=== PATIENT | female | born 1955 | race Caucasian/White ===

== ENCOUNTER → 2023-10-04 10:35 | Outpatient (REF) | payer MEDICARE, BC, SELFPAY ==
[2023-10-04 12:16] LABS: % Basophils 0.8 % (0-2); % Eosinophils 5.9 % (0-6); % Immature Granulocytes 0.1 % (0-0.5); % Lymphocytes 39.4 % (20.5-51.1); % Monocytes 6.4 % (1.7-9.3); % Neutrophils 47.4 % (42.2-75.2); Absolute Basophils 0.1 10^3/uL (0-0.2); Absolute Eosinophils 0.4 10^3/uL (0-0.7); Absolute Monocytes 0.5 10^3/uL (0.1-0.6); Absolute Neutrophils 3.5 10^3/uL (1.4-6.5); Hematocrit 38.7 % (37.0-47.0); Hemoglobin 13.1 g/dL (12.0-16.0); Mean Corp Hgb Conc. 33.9 g/dL (33.0-37.0); Mean Corpuscular Hgb 31.3 pg (27.0-31.0); Mean Corpuscular Volume 92.4 fL (81.0-99.0); Mean Platelet Volume 10.5 fL (7.4-10.4); Nucleated Red Blood Cells % 0 %; Platelet Count 245 10^3/uL (130-400); Red Blood Cell Count 4.19 10^6/uL (4.20-5.40); Red Cell Dist. Width 12.9 % (11.5-14.5); White Blood Cell Count 7.5 10^3/uL (4.8-10.8)
[2023-10-04 13:00] LABS: ALT (SGPT) 17 U/L (0-35); AST (SGOT) 25 U/L (14-36); Albumin 4.3 g/dl (3.5-5.0); Alkaline Phosphatase 76 U/L (38-126); Blood Urea Nitrogen 17 mg/dl (7-17); Calcium 9.3 mg/dl (8.4-10.2); Carbon Dioxide 27 mmol/L (22-30); Chloride 105 mmol/L (98-107); Glucose 98 mg/dl (70-99); HDL Cholesterol 70 mg/dl; LDL Cholesterol, Calculated 140 mg/dl; Potassium 4.8 mmol/L (3.5-5.1); Sodium 140 mmol/L (135-145); Total Bilirubin 0.5 mg/dl (0.2-1.3); Total Cholesterol 241 mg/dl (50-199); Total Protein 7.2 g/dl (6.3-8.2); Triglyceride 159 mg/dl (10-149); Very Low Density Lipoprotein 31 mg/dl (0-30); eGFR > 60.00
[2023-10-04 13:06] LABS: TSH Reflex To Free T4 2.33 uIU/ml (0.47-4.68)
== END ==
LOC: REG 10:35
PROVIDERS: ATTENDING PHYSICIAN Family Medicine
DX: E78.49 Other hyperlipidemia (principal); F11.20 Opioid dependence, uncomplicated; L40.50 Arthropathic psoriasis, unspecified; F41.9 Anxiety disorder, unspecified
CPT/HCPCS: 36415; 80053; 80061; 84443; 85025

== ENCOUNTER 2025-01-05 08:48 | Emergency (ER) | payer MEDICARE, BC, SELFPAY ==
[2025-01-05] VITALS (10 sets, daily range): BP systolic 114–155; BP diastolic 72–97; PULSE 61–64; BMI 27.9
--- NOTE | 2025-01-05 09:39 | ED.GENMED ---
History of Present Illness
General
Chief Complaint: Dizziness
Source: patient
Exam Limitations: none
Time Seen by Provider: 01/05/25 09:08
Nursing documentation reviewed up to this point in time: agreed with
History of Present Illness
History of Present Illness:
Patient presents to ED for evaluation secondary to 'not feeling well' and 'not feeling like herself'. Patient states that her symptoms started while she was vacationing at [facility] with her family last week. Patient also has been
experiencing intermittent lightheadedness and headache. Denies fever or chills. Denies loss of appetite. Denies coughing. Denies vomiting or diarrhea. Denies rash. Denies insect bite. Denies sick contact. Denies recent change in medications
or diet. Denies change in vision. Denies loss of sensation or weakness. Denies difficulty with ambulation. Denies previous history of similar symptoms. Of note, 2 months ago, patient reports having had 'cyst above her buttocks', pressed down by
her primary care physician. Patient feels that her cyst may have come back. Patient is not sure if her symptoms are secondary to that.
Past History
Past History
ED Past Medical History: Other (arthritis, diverticulitis, polypectomy)
ED Past Surgical History: Tonsilectomy and Other (B/L tubal ligation)
Social History
Tobacco: Smoker
Alcohol: Occasional
Drug: None
Personal:
Living: with family
Family History
Family History: Other (Mother with diabetes hypertension macular degeneration and hyperlipidemia)
Review of Systems
Review of Systems
Allergies reviewed?: Yes
All Other Systems: ROS reviewed and negative except as documented in HPI and ROS
Constitutional: Reports no symptoms; Denies fever
Respiratory: Reports no symptoms
Cardiac: Reports no symptoms
ABD/GI: Reports no symptoms
Musculoskeletal: Reports no symptoms; Denies muscle pain, neck pain or back pain
Skin: Reports no symptoms
Neurological: Reports dizzy and headache; Denies weakness or numbness
Phy Exam
Physical Exam
Physical Exam:
Physical Exam
General: no apparent distress, not acutely ill. afebrile
Head: nc/at. eomi. no nystagmus noted
Neck: supple. no meningeal signs.
Heart: s1/s2 regular rate and rhythm
Lungs: no acute respiratory distress. clear bilaterally
Abdomen: normal bowel sounds. not tender.
Neuro: alert and oriented x 3. no focal neurological deficits
Skin: no rash
Psychiatric: well kept. interactive and cooperative
Extremities: no edema. no calf tenderness.
Course
Orders/Labs/Results
Orders:
Orders
01/05/25 09:21
Complete Blood Count/With Diff Urgent
Comprehensive Metabolic Panel Urgent
01/05/25 09:28
Electrocardiogram (*1) Urgent
Reason for Study: Fatigue / Weakness
EKG- Treatment ONCE
Orthostatic VS- Treatment ONCE
01/05/25 09:29
CT Head W/o Iv Contrast Urgent
Comment:
Reason For Exam: dizziness/headache
01/05/25 09:31
Magnesium Urgent
TSH Urgent
Troponin I Urgent
01/05/25 10:26
Urinalysis Reflex To Culture Urgent
Date Specimen was Collected: 01/05/25
Time Specimen was Collected: 10:19
Urine Microscopic Reflex Cult Urgent
01/05/25 10:48
Ehrlichia/Anaplasma by PCR [S] Urgent
Lyme Progressive Urgent
Blood Parasites Urgent
JORGE LUIS Source: Blood/Venous
Specimen Description:
Abnormal Lab Results
01/05/25 01/05/25
09:21 10:26
MCHC 32.1 L g/dL
(33.0-37.0)
Eosinophils % 7.5 H %
(0-6)
Glucose 111 H mg/dl
(70-99)
Ur Occult Blood Reflex 1+ A
(Negative)
01/05/25 09:21
01/05/25 09:21
Vital Signs
Initial and Last Documented VS:
Initial Vital Signs
Temp Pulse Resp BP Pulse Ox
97.5 F 69 16 155/93 98
01/05/25 08:50 01/05/25 08:50 01/05/25 08:50 01/05/25 08:50 01/05/25 08:50
Last Documented Vital Signs
Temp Pulse Resp BP Pulse Ox
97.5 F 59 17 147/78 98
01/05/25 08:50 01/05/25 15:00 01/05/25 15:00 01/05/25 15:00 01/05/25 15:00
MDM/Problems Addressed
MDM/Problems Addressed:
Patient with an unremarkable workup in ED, including CT head and blood work. Otherwise, patient remains afebrile, hemodynamically stable, and neurologically intact during observation.
Lyme and other tickborne illness pending.
Patient feels comfortable going home at this time, and will be contacted with any positive test results. Patient is seen ambulating with steady gait, without assistance, at time of discharge.
*Pulse Oximetry
SaO2: 97
Oxygen Mode of Delivery: Room air
Patient hypoxic: no
*EKG
Interpreted by ED Provider?: Yes
EKG Intrepretation Date: 01/05/25
Heart Rate: 61
Rate: normal
Rhythm: sinus
[place]: normal axis
*Critical Care Note
Total Time (30-74mins, 75-104mins- exclusive of procedures): Not Applicable
ED Attending Note
-
Portions of this chart may have been created with voice recognition software.� Occasional wrong word or��sound alike� substitutions may have occurred due to the inherent limitations of voice recognition software.
Discharge Plan
Departure
Patient Disposition: Home (Routine Discharge)
Date of Disposition: 01/05/25
Time of Disposition: 15:23
Patient with high blood pressure during this ER visit?: Yes
Condition: Good
Discharge Problem:
Weakness
Instructions: Weakness - ED (DC)
Prescriptions:
No Action
multivitamin [Daily Multiple] 1 EACH tablet
1 ea PO DAILY
hydrocodone-ibuprofen 1 EACH tablet
1 ea PO DAILYPRN PRN (Reason: pain)
alprazolam 0.25 MG tablet
0.25 mg PO DAILYPRN PRN (Reason: anxiety)
metronidazole 500 MG tablet
500 mg PO TID Qty: 30 0RF
ciprofloxacin HCl 500 MG tablet
500 mg PO BID Qty: 20 0RF
metronidazole 500 MG tablet
500 mg PO TID Qty: 21 0RF
levofloxacin 500 MG tablet
500 mg PO DAILY Qty: 7 0RF
amoxicillin-pot clavulanate 875-125 mg tablet
1 tab PO BID Qty: 19 0RF
Referrals:
Nya Bailey DO [Family Provider, Family Practice]
Activity Restrictions/Additional Instructions:
As discussed, please follow-up with your primary care physician for reevaluation. You will be contacted at home, if any of the discussed test results come back positive, ie. lyme disease.
Interventions
Interventions:
*Risk Screen - Suicide Last Done: 01/05/25 09:23
*General Assessment Last Done: 01/05/25 09:23
*Neglect/Abuse Screening Last Done: 01/05/25 09:23
*ED- Fall Risk Assessment Last Done: 01/05/25 09:23
*ED COVID-19 Vaccine History Last Done: 01/05/25 09:23
*Nursing Disposition Last Done: 01/05/25 15:30
ED- Cardiac Assessment Last Done: 01/05/25 09:24
ED- Neurological Assessment Last Done: 01/05/25 09:23
Discharge Date and Time
Discharge Date/Time: 01/05/25 15:42
Print Language: [id number]
[2025-01-05 09:44] LABS: ALT (SGPT) 18 U/L (0-35); AST (SGOT) 21 U/L (14-36); Albumin 4.1 g/dl (3.5-5.0); Alkaline Phosphatase 59 U/L (38-126); Blood Urea Nitrogen 13 mg/dl (7-17); Calcium 9.3 mg/dl (8.4-10.2); Carbon Dioxide 30 mmol/L (22-30); Chloride 105 mmol/L (98-107); Estimated Creatinine Clearance 74 ml/min; Glucose 111 mg/dl (70-99); Potassium 4.1 mmol/L (3.5-5.1); Sodium 139 mmol/L (135-145); Total Protein 6.9 g/dl (6.3-8.2); eGFR > 60.00
[2025-01-05 09:45] LABS: Hematocrit 41.8 % (37.0-47.0); Hemoglobin 13.4 g/dL (12.0-16.0); Mean Corp Hgb Conc. 32.1 g/dL (33.0-37.0); Mean Corpuscular Volume 94.1 fL (81.0-99.0); Nucleated Red Blood Cells % 0 %; Platelet Count 212 10^3/uL (130-400); Red Cell Dist. Width 12.4 % (11.5-14.5)
[2025-01-05 09:55] LABS: Magnesium 2.0 mg/dl (1.6-2.3)
[2025-01-05 10:05] LABS: Troponin I < 0.012 ng/ml
[2025-01-05 10:24] LABS: TSH 4.43 uIU/ml (0.47-4.68)
[2025-01-05 10:47] LABS: Urine Character Clear (Clear)
[2025-01-05 11:06] LABS: Urine Red Blood Cell 0-2 /HPF (0-2)
[2025-01-05 15:57] LABS: Lyme Antibody Screen, EIA Negative (Negative)
== END 2025-01-05 15:42 | disposition home or self-care (01) ==
LOC: EMR 08:48
PROVIDERS: EMERGENCY PHYSICIAN Emergency Medicine; FAMILY PHYSICIAN Family Medicine
DX: R53.1 Weakness (principal); R03.0 Elevated blood-pressure reading, without diagnosis of hypertension; M19.90 Unspecified osteoarthritis, unspecified site; F17.200 Nicotine dependence, unspecified, uncomplicated
CPT/HCPCS: 99284; 70450; 80053; 81003; 81015; 83735; 84443; 84484; 85025; 86618; 87015; 87207; 87468; 87484; 87798; 93005